=== PATIENT | male | born 1945 | race Caucasian/White ===

== ENCOUNTER 2018-06-26 09:56 | Emergency (ER) | payer OTHER ==
[~2018-06-26] VITALS: Ht 165.1 cm; Wt 80.0 kg
[~2018-06-26 09:56] MED LIST: ASPI-1159 PO; ATEN50TA PO; DAPA10TA PO; FINA5TAB11 PO; HYDR12.54 PO; LINA5TAB PO; LOSA50TA20 PO; METF-416 PO; TAMS0.4C31 PO
[2018-06-26] MEDS ORDERED: ATOR40TA70 MT (10:33)
[2018-06-26] MEDS ORDERED: IBUPROFEN 600MG TABLET PO ONE (19:45)
[2018-06-26 21:08] VITALS: BP 136/62
== END 2018-06-26 21:11 | disposition home or self-care (01) ==
LOC: ER 10:11
DX: M79.672 Pain in left foot (principal); E11.9 Type 2 diabetes mellitus without complications; E78.00 Pure hypercholesterolemia, unspecified; I10 Essential (primary) hypertension; Z98.890 Other specified postprocedural states; Z79.82 Long term (current) use of aspirin; Z79.899 Other long term (current) drug therapy
CPT/HCPCS: 93971; 99284

== ENCOUNTER 2021-01-15 19:33 | Emergency (ER) | payer OTHER ==
[~2021-01-15] VITALS: Ht 165.1 cm; Wt 82.0 kg
[~2021-01-15 19:33] MED LIST changes: -ASPI-1159 PO; +ASPI-1497 PO; +ATOR40TA70 MT; -LOSA50TA20 PO; +LOSA50TA41 PO
[2021-01-15] MEDS ORDERED: ACETAMINOPHEN 325MG TABLET PO ONE (22:00)
[2021-01-15] MEDS ORDERED: KETOROLAC 30MG/ML VIAL IM ONE (23:00)
[2021-01-16] MEDS ORDERED: IBUP-2029 MT (01:57)
[2021-01-16 02:10] VITALS: BP 155/71
== END 2021-01-16 03:15 | disposition home or self-care (01) ==
LOC: ER 19:33
DX: S82.892A Other fracture of left lower leg, initial encounter for closed fracture (principal); E11.9 Type 2 diabetes mellitus without complications; E78.00 Pure hypercholesterolemia, unspecified; I10 Essential (primary) hypertension; W50.2XXA Accidental twist by another person, initial encounter; Y93.89 Activity, other specified; Y92.89 Other specified places as the place of occurrence of the external cause; Y99.8 Other external cause status; Z86.73 Personal history of transient ischemic attack (TIA), and cerebral infarction without residual deficits; Z79.899 Other long term (current) drug therapy
CPT/HCPCS: 29515; 73590; 73610; 96372; 99284; J1885

== ENCOUNTER 2022-07-06 14:48 | Emergency (ER) | payer MEDICARE, OTHER ==
[~2022-07-06] VITALS: Ht 172.7 cm; Wt 50.0 kg
[~2022-07-06 14:48] MED LIST changes: +IBUP-2029 MT
[2022-07-06 14:58] VITALS: BP 153/74
== END 2022-07-06 18:57 | disposition home or self-care (01) ==
LOC: ER 14:48
DX: R53.1 Weakness (principal); R46.89 Other symptoms and signs involving appearance and behavior; R41.82 Altered mental status, unspecified; E11.9 Type 2 diabetes mellitus without complications; E78.00 Pure hypercholesterolemia, unspecified; I10 Essential (primary) hypertension; Z79.82 Long term (current) use of aspirin; Z86.73 Personal history of transient ischemic attack (TIA), and cerebral infarction without residual deficits
CPT/HCPCS: 99284